=== PATIENT | male | born 2000 | race Caucasian/White ===

== ENCOUNTER 2022-08-22 03:43 | Emergency (ER) | payer BC, SELFPAY ==
[2022-08-22 03:45] VITALS: BP 135/96; PULSE 120; RESP 20; TEMP 36.4; O2SAT 99
--- NOTE | 2022-08-22 03:45 | DI.CT_ITS ---
Exam(s) CT ABDOMEN PELVIS W EXAM: CT ABDOMEN PELVIS W CLINICAL HISTORY: rlq pain, r/o stone vs appe. TECHNIQUE: Imaging Protocol: Axial computed tomography images with coronal and sagittal reformatted images were created and reviewed CONTRAST MATERIAL: Intravenous: Omnipaque-350 100cc Oral: None COMPARISON: No exams were available for comparison FINDINGS: VISUALIZED LUNG BASES: No nodules nor pleural effusions evident. ABDOMEN: There is no ascites. LIVER: There are no focal hepatic lesions evident. Mild steatosis. No dilated intrahepatic ducts. GALLBLADDER/BILIARY: No obvious gallbladder pathology. CBD is not dilated. PANCREAS: No evidence of pancreatic mass nor dilatation of the pancreatic duct. SPLEEN: Spleen is not enlarged. No obvious intrasplenic lesions. Splenic and portal veins are paten t. ADRENALS: There are no significant adrenal masses. KIDNEYS:Left kidney is unremarkable. There is right-sided hydronephrosis and hydroureter which is ca used by a millimeter calculus in the distal right ureter at the right ureterovesical junction. There also a few remaining small calculi in the Right kidney. No renal masses nor cysts evident. ABDOMINAL AORTA: Abdominal aorta is not enlarged. LYMPH NODES:There is no retroperitoneal nor paraaortic adenopathy. ABDOMINAL WALL: No evidence of significant anterior abdominal wall nor inguinal hernia. GI: There is no evidence of bowel obstruction, free air, nor abscess. PELVIS: GI: No evidence of appendicitis.No evidence of sigmoid diverticulitis. LYMPH NODES: There is no intrapelvic nor inguinal adenopathy. REPRODUCTIVE: Prostate not enlarged. Seminal vesicles unremarkable. URINARY BLADDER: Not distended. OSSEOUS: No fractures and no significant osseous lesions. IMPRESSION: 1. The main finding here is an obstructing 3 millimeter calculus in the distal right ureter at the ur eteral vesicle junction. 2. There are multiple small remaining calculi in the right kidney; none in the left kidney. 3. No evidence of appendicitis nor diverticulitis. RADIATION DOSE DELIVERED: 1,059.97mGy.cm Total DLP DATA REPOSITORY: All CT scans at this facility are submitted to the National Radiology Data Registry (NRDR) Dose Index Registry (DIR) with the [employer] (ACR). RADIATION OPTIMIZATION: All CT scans at this facility use at least one of these dose optimization te chniques: automated exposure control; mA and/or kV adjustment per patient size (includes targeted exa ms where dose is matched to clinical indication); or iterative reconstruction.
--- NOTE | 2022-08-22 04:01 | W.ED.GENAD ---
Discharge Plan Disposition Patient Disposition: Home Condition: Good Discharge Details Clinical Impression: Kidney stone on right side Primary Care Provider: Unknown,Unknown ED Provider: Jeovanny Tamayo Home Meds and New Rx's Prescriptions: New tamsulosin 0.4 mg capsule 0.4 mg PO DAILY Qty: 7 0RF docusate sodium [Colace] 100 mg capsule 100 mg PO DAILY Qty: 30 0RF No Action fluoxetine 20 mg capsule 40 mg PO DAILY Discharge Instructions Instructions: Kidney Stones (ED) Additional Instructions: At this time you have evidence of a very small 1 to 2 mm kidney stone. It is almost at the very end, and will likely pass shortly. Please drink plenty of fluids, including fluids with lemon additive to help prevent stones in the future. Take Tylenol and Motrin as needed for pain. Take the Wells pain pills only as needed for breakthrough pain. If you have persistent pain over the next 24 to 48 hours and this may represent the stone being stuck at a stricture. In which case please return for reassessment. Please take the Flomax as directed. It has been sent to your pharmacy on file. Additionally you do have mild constipation. Please take the stool softener as directed. It is also been sent to your pharmacy on file. If you notice any worsening of your symptoms, or any new symptoms such as vomiting, diarrhea, fever, chills, shortness of breath, chest pain, numbness, weakness, or fainting , please return immediately to the emergency department for reevaluation. Please follow up with your primary care provider as soon as possible for reassessment and reevaluation. As always, it was a pleasure participating in your medical care today. Referrals: Delphine Reyes [NURSE PRACTITIONER] - Medical Decision Making This is a pleasant 21-year-old male with past medical history of in the autism spectrum, tic disorder, who presents today with right lower quadrant abdominal pain. Patient states that it started in his right flank at around 6 PM. It is slightly transition more anteriorly. He denies any urinary discomfort but does admit to feeling like there was a grain of sand that might of been traveling down earlier. He denies fever or chills. No vomiting. He does admit to nausea. Bowel movements have been regular. No other complaints at this time. He did take Motrin but this did not improve his symptoms. Physical exam demonstrates nontender abdomen with no reproducible component. Nontender genitals. Differential is highest for kidney stone, but also includes a less likely appendicitis versus constipation. We will treat with Tylenol, fluids, get a CT scan to rule out these pathologies, monitor closely and reassess. At [address] scan shows evidence of a small 1 to 2 mm kidney stone. Patient's pain is improved after morphine. Urinalysis shows no evidence of infection. Patient is afebrile. Symptoms inconsistent at this time with septic stone. Patient does also have some mild constipation noted. Will give Flomax here, and prescription for Flomax at home. Recommend continued NSAIDs and Wells only as needed for breakthrough pain. Recommend Colace for constipation. With the patient's notable improvement of symptoms, the lack of evidence of infection on urinalysis, and with the patient's ability to tolerate p.o., I do feel that he is stable for discharge at this time with close follow-up. I discussed all of this with the patient's mother who is at bedside. I have extensively reviewed the treatment plan and discharge instructions with the patient and their family. I have addressed all patient concerns at this time. The patient and family was made aware of what symptoms to monitor for that would warrant a return to the emergency department. Discussed the plan with the patient and family, they demonstrate verbal understanding and agreement with our assessment and plan at this time. The documentation in this chart was dictated using [employer] dictation software. Please excuse any dictation errors. FINDINGS: Liver: There is diffuse decrease in hepatic parenchymal density, consistent with mild fatty infiltration. No mass. Gallbladder and bile ducts: Normal. No calcified stones. No ductal dilation. Pancreas: Normal. No ductal dilation. Spleen: Normal. No splenomegaly. Adrenal glands: Normal. No mass. Kidneys and ureters: 1-2 mm obstructing calculus in distal right ureter at ureterovesical junction. Mild right hydronephrosis and hydroureter. Several minute right renal calculi. Mild right perinephric fat stranding. Stomach and bowel: Unremarkable. No obstruction. No mucosal thickening. Appendix: Normal appendix. Intraperitoneal space: No free intraperitoneal gas or ascites Vasculature: Unremarkable. No abdominal aortic aneurysm. Lymph nodes: Unremarkable. No enlarged lymph nodes. Urinary bladder: Unremarkable as visualized. Reproductive: Unremarkable as visualized. Bones/joints: Unremarkable. No acute fracture. Soft tissues: Unremarkable. IMPRESSION: 1. Obstructing calculus in distal right ureter. 2. Right renal calculi. 3. Normal appendix. Thank you for allowing us to participate in the care of your patient. Dictated and Authenticated by: Pan Mobley DO 08/22/2022 5:09 AM Eastern Time ([place] & [place]) HPI General Date/Time Provider Initiated Documentation: 08/22/22 03:44. HPI Narrative: 1 this is a pleasant 21-year-old male with past medical history of in the autism spectrum, tic disorder, who presents today with right lower quadrant abdominal pain. Patient states that it started in his right flank at around 6 PM. It is slightly transition more anteriorly. He denies any urinary discomfort but does admit to feeling like there was a grain of sand that might of been traveling down earlier. He denies fever or chills. No vomiting. He does admit to nausea. Bowel movements have been regular. No other complaints at this time. He did take Motrin but this did not improve his symptoms. Related Data Home Medications Medication Instructions Recorded Confirmed docusate sodium 100 mg capsule 100 mg PO DAILY #30 caps 08/22/22 (Colace) fluoxetine 20 mg capsule 40 mg PO DAILY 08/22/22 08/22/22 tamsulosin 0.4 mg capsule 0.4 mg PO DAILY #7 caps 08/22/22 Previous Rx's Medication Instructions Recorded docusate sodium 100 mg capsule 100 mg PO DAILY #30 caps 08/22/22 (Colace) tamsulosin 0.4 mg capsule 0.4 mg PO DAILY #7 caps 08/22/22 Allergies Allergy/AdvReac Type Severity Reaction Status Date / Time No Known Allergies Allergy Unverified 06/04/20 13:34 General Stated Complaint: Abd Prob MARTA: 3 Review of Systems All systems reviewed & are unremarkable except as noted in HPI and below PFSH All Active Problems (Updated 08/22/22 @ 05:19 by Jeovanny Tamayo DO) Kidney stone on right side (Acute) Tic disorder (Acute 04/08/12) Anxiety (Acute 03/03/18) meds7/ Autism spectrum (Acute 02/08/15) has [address] Nausea alone (Acute 04/08/12) CHRONIC Routine child health exam (Acute 04/08/12) Surgical History Circumcision Family History Mother Essential hypertension Personal history of malignant neoplasm breast Mental disorder DEPRESSION/anxiety GERD (gastroesophageal reflux disease) Father Mental disorder DEPRESSION/ANXIETY,bad reaction to Celexa GERD (gastroesophageal reflux disease) Other Personal history of malignant neoplasm Mental disorder anxiety on both sides Social History Smoking/Tobacco Use Status: Never Smoking risk assessment performed?: Yes Alcohol Intake: never Substance use type: does not use Do you feel safe at home: Yes Do you feel safe in your relationship?: Yes Exam Narrative Exam Narrative: 1.Const: Well-nourished, Well-developed, appearing stated age 2.Eyes: PERRL, no conjunctival injection, and symmetrical lids. 3.ENT: Atraumatic external nose and ears. Moist MM. Neck: Symmetric, trachea midline, No thyromegaly. 4.CVS: +S1/S2, No murmurs or gallops. Peripheral pulses 2+ and equal in all extremities. Brisk capillary refill in all extremities. 5.RESP: Unlabored respiratory effort. Clear to auscultation bilaterally. No wheezes rales or rhonchi 6.GI: Soft, Nontender/Nondistended, No hepatosplenomegaly. No guarding or rebound. No genital tenderness. No flank or CVA tenderness. 7.MSK: Normocephalic/Atraumatic, Extremities w/o deformity or ttp No cyanosis or clubbing, Normal movement of all extremities 8.Skin: Warm, Dry. No rashes or lesions. 9.Neuro: track mechanic II-XII grossly intact. Sensation grossly intact, no focal neurologic deficits. 10.Psych: (AAO) x3. Appropriate mood and affect Course Vital Signs Vital signs: Vital Signs Temperature 36.4 C L 08/22/22 03:45 Pulse 120 H 08/22/22 03:45 Respiratory Rate 20 08/22/22 03:45 Blood Pressure 135/96 H 08/22/22 03:45 Pulse Oximetry 99 08/22/22 03:45 Temperature 36.4 C L 08/22/22 03:45 Temperature Source Tympanic 08/22/22 03:45 Pulse 120 H 08/22/22 03:45 Respiratory Rate 20 08/22/22 03:45 Blood Pressure 135/96 H 08/22/22 03:45 Blood Pressure Position Sitting 08/22/22 03:45 Pulse Oximetry 99 08/22/22 03:45 Oxygen Delivery Method Room Air 08/22/22 03:45 Oxygen Flow Rate 0 08/22/22 03:45 Pain Level 4 08/22/22 03:45
[2022-08-22] MEDS: Normal Saline 1,000 ML 1000 ML IV (04:03)
[2022-08-22] MEDS: ACETAMINOPHEN 1,000 MG/100 ML BTL 400 MG IVPB (04:04)
[2022-08-22 04:05] LABS: Abs Immature Grans 0.06 10^3/uL (0.0-0.06); Absolute Basophil Count 0.03 10^3/uL (0.0-0.2); Absolute Eosinophil Count 0.04 10^3/uL (0.0-0.7); Absolute Lymphocyte Count 1.54 10^3/uL (1.2-3.4); Absolute Monocyte Count 1.31 10^3/uL (0.1-0.8); Absolute Neutrophil Count 11.38 10^3/uL (1.2-6.7); Basophils % 0.2; Eosinophils % 0.3; HCT 42.2 % (40.0-50.0); HGB 14.4 g/dL (13.5-17.5); Immature Grans % 0.4; Lymphocytes % 10.7; MCH 29.8 pg (27.0-33.0); MCHC 34.1 % (32.0-36.0); MCV 87 fL (80-95); Monocytes % 9.1; Neutrophils % 79.3; Platelet Count 220 10^3/uL (130-400); RBC 4.83 10^6/uL (4.36-5.78); RDW 11.9 % (11.8-14.1); WBC 14.35 10^3/uL (4.4-10.8)
[2022-08-22 04:19] LABS: ALT 29 U/L (16-63); AST 14 U/L (15-37); Albumin 4.6 g/dL (3.4-5.0); Alkaline Phosphatase 83 U/L (46-116); Anion Gap 11.5 mmol/L (3-11); BUN 15 mg/dL (7-18); Bilirubin, Total 0.8 mg/dL (0.2-1.0); CO2 25.5 mmol/L (21.0-32.0); CREATININE 1.2 mg/dL (0.70-1.30); Calcium 9.8 mg/dL (8.5-10.1); Chloride 105 mmol/L (98-107); Estimated GFR 88.24 (mL/min/1.73m2); Glucose 129 mg/dL (74-106); Lipase 38 U/L (16-77); Potassium 3.9 mmol/L (3.5-5.1); Sodium 142 mmol/L (136-145)
[2022-08-22] MEDS: Omnipaque 350 MG/ML 100 ML BTL IJ (04:21)
[2022-08-22 04:39] LABS: Bilirubin Negative (Negative); Blood Negative (Negative); Clarity Clear (Clear); Glucose Negative (Negative); Ketones 15 mg/dL (Negative); Leukocyte Esterase Negative (Negative); Nitrite Negative (Negative); Specific Gravity >= 1.030 (1.005-1.025)
[2022-08-22] MEDS: Normal Saline - Diluent 50 ML VIAL IV (04:48)
[2022-08-22] MEDS: Normal Saline Flush 10 ML SYR IVP (04:49)
[2022-08-22] MEDS: MORPHine 4 MG/ML SYR IVP (05:10)
--- NOTE | 2022-08-22 05:10 | DI.VRAD_ITS ---
PROCEDURE INFORMATION: Exam: CT Abdomen And Pelvis With Contrast Exam date and time: 08/22/2022 4:36 AM Age: 21 years old Clinical indication: Abdominal pain; Localized; Right lower quadrant (rlq); Patient HX: Rlq pain, R/O stone vs appe TECHNIQUE: Imaging protocol: Computed tomography of the abdomen and pelvis with contrast. Radiation optimization: All CT scans at this facility use at least one of these dose optimization techniques: automated exposure control; mA and/or kV adjustment per patient size (includes targeted exams where dose is matched to clinical indication); or iterative reconstruction. Contrast material: OMNIPAQUE 350; Contrast volume: 100 ml; Contrast route: INTRAVENOUS (IV); COMPARISON: No relevant prior studies available. FINDINGS: Liver: There is diffuse decrease in hepatic parenchymal density, consistent with mild fatty infiltration. No mass. Gallbladder and bile ducts: Normal. No calcified stones. No ductal dilation. Pancreas: Normal. No ductal dilation. Spleen: Normal. No splenomegaly. Adrenal glands: Normal. No mass. Kidneys and ureters: 1-2 mm obstructing calculus in distal right ureter at ureterovesical junction. Mild right hydronephrosis and hydroureter. Several minute right renal calculi. Mild right perinephric fat stranding. Stomach and bowel: Unremarkable. No obstruction. No mucosal thickening. Appendix: Normal appendix. Intraperitoneal space: No free intraperitoneal gas or ascites. Vasculature: Unremarkable. No abdominal aortic aneurysm. Lymph nodes: Unremarkable. No enlarged lymph nodes. Urinary bladder: Unremarkable as visualized. Reproductive: Unremarkable as visualized. Bones/joints: Unremarkable. No acute fracture. Soft tissues: Unremarkable. IMPRESSION: 1. Obstructing calculus in distal right ureter. 2. Right renal calculi. 3. Normal appendix. Dictated and Authenticated by: Pan Mobley MD. Ordering:BRITTANY Up MD
[2022-08-22] MEDS: Tamsulosin 0.4 MG CAPCR PO (05:21)
[2022-08-22] MEDS: Ketorolac 15 MG/ML VIAL IVP (05:21)
[2022-08-22 05:25] VITALS: PULSE 86
[2022-08-22 05:45] VITALS: BP 136/91; PULSE 92; RESP 20; O2SAT 99
== END 2022-08-22 05:44 | disposition home or self-care (01) ==
PROVIDERS: Emergency Provider Student in an Organized Health Care Education/Training Program
DX: N13.2 Hydronephrosis with renal and ureteral calculous obstruction (principal)
CPT/HCPCS: 80053; 83690; 96361; 96374; 96375; 99285; 74177; 81003; 85025; 99284; J0131; J1885; J2270; J3490

== ENCOUNTER 2023-10-19 10:45 | Outpatient (REF) | payer BC, SELFPAY ==
[2023-10-19 15:48] LABS: ALT 44 U/L (16-63); AST 19 U/L (15-37); Albumin 3.9 g/dL (3.4-5.0); Alkaline Phosphatase 73 U/L (46-116); Anion Gap 9.9 mmol/L (3-11); BUN 13 mg/dL (7-18); Bilirubin, Total 0.4 mg/dL (0.2-1.0); CO2 27.1 mmol/L (21.0-32.0); CREATININE 0.6 mg/dL (0.70-1.30); Calcium 8.3 mg/dL (8.5-10.1); Chloride 107 mmol/L (98-107); Cholesterol 259 mg/dL (<200); Estimated GFR 139.97 (mL/min/1.73m2); Glucose 99 mg/dL (74-106); HDL Cholesterol 37 mg/dL (40-60); Sodium 144 mmol/L (136-145); Total Protein 6.9 g/dL (6.4-8.2); Triglyceride 562 mg/dL (<150)
[2023-10-19 16:08] LABS: LDL CHOLESTEROL 113 mg/dL (<100)
== END 2023-10-19 10:46 | disposition home or self-care (01) ==
LOC: NCHCN 10:45
PROVIDERS: Visit Provider Physician Assistant
DX: E66.9 Obesity, unspecified (principal)
CPT/HCPCS: 80053; 80061; 83721

== ENCOUNTER 2024-09-29 15:12 | Outpatient (REF) | payer BC, SELFPAY ==
[2024-09-29 19:39] LABS: ALT 53 U/L (16-63); AST 22 U/L (15-37); Albumin 4.3 g/dL (3.4-5.0); Alkaline Phosphatase 102 U/L (46-116); Anion Gap 11.3 mmol/L (3-11); BUN 7 mg/dL (7-18); Bilirubin, Total 0.6 mg/dL (0.2-1.0); CO2 25.7 mmol/L (21.0-32.0); CREATININE 0.7 mg/dL (0.70-1.30); Calcium 8.9 mg/dL (8.5-10.1); Chloride 105 mmol/L (98-107); Cholesterol 168 mg/dL (<200); Estimated GFR 132.78 (mL/min/1.73m2); Glucose 120 mg/dL (74-106); HDL Cholesterol 38 mg/dL (>or=40); Sodium 142 mmol/L (136-145); Total Protein 7.6 g/dL (6.4-8.2); Triglyceride 688 mg/dL (<150)
[2024-09-29 19:43] LABS: Hemoglobin A1C 5.4 % (<5.7)
[2024-09-29 20:50] LABS: LDL CHOLESTEROL 72 mg/dL (<100)
== END 2024-09-29 15:13 | disposition home or self-care (01) ==
LOC: NCHCN 15:12
PROVIDERS: Visit Provider Physician Assistant
DX: E78.5 Hyperlipidemia, unspecified (principal); Z13.1 Encounter for screening for diabetes mellitus
CPT/HCPCS: 80053; 80061; 83721; 83036

== ENCOUNTER 2024-12-23 15:19 | Outpatient (REF) | payer BC, SELFPAY ==
[2024-12-23 21:12] LABS: Bilirubin Negative (Negative); Blood Moderate (Negative); Clarity Clear (Clear); Glucose Negative (Negative); Ketones Negative (Negative); Leukocyte Esterase Negative (Negative); Nitrite Negative (Negative); Specific Gravity 1.015 (1.005-1.025); Urobilinogen 0.2 mg/dL (Up to 0.2); pH 6.5 (5-8)
[2024-12-23 21:18] LABS: Bacteria Negative HPF (Negative); C & S Indicated? No; Crystals Negative HPF (Negative); Epithelial Cells Rare HPF (Negative); Mucus Moderate (Negative); WBC Negative HPF (0-5)
== END 2024-12-23 15:20 | disposition home or self-care (01) ==
LOC: NCHCN 15:19
PROVIDERS: PCP Family Medicine; Visit Provider Family Medicine
DX: R10.9 Unspecified abdominal pain (principal)
CPT/HCPCS: 81003; 81015

== ENCOUNTER 2025-02-03 01:06 | Outpatient (CLI) | payer BC, SELFPAY ==
[2025-02-03] MEDS: Methacholine 100 MG VIAL IH (15:23)
[2025-02-03] MEDS: Albuterol HFA 18 GM 200 PUFF INH IH (15:24)
[2025-02-03] MEDS: Inhaler, Assist Device 1 EACH MC (15:24)
--- NOTE | 2025-02-06 10:39 | W.PFT ---
Date of service: 02/03/25 Time of Service: 12:58 Pulmonary Function Test Result Indications: Exercise induced asthma Impression Interpretation: 1. Good patient effort was noted 2. Spirometry showed a reduced FEV1:FVC ratio, consistent with mild obstruction or normal variant. There was no significant bronchodilator response. 3. There was a 14% fall in FEV1 at 2 mg/mL methacholine, and only a 4% fall at 16 mg/mL. Negative methacholine challenge test.
== END 2025-02-03 01:07 | disposition home or self-care (01) ==
LOC: RT 01:06
PROVIDERS: PCP Family Medicine; Visit Provider Internal Medicine Pulmonary Disease
DX: J45.990 Exercise induced bronchospasm (principal)
CPT/HCPCS: 94070; 94726; 94729; 95070; J7674

== ENCOUNTER 2025-04-12 18:03 | Outpatient (REF) | payer BC, SELFPAY ==
[2025-04-12 16:55] LABS: ALT 70 U/L (16-63); AST 28 U/L (15-37); Albumin 4.3 g/dL (3.4-5.0); Alkaline Phosphatase 55 U/L (46-116); Anion Gap 11.4 mmol/L (3-11); BUN 10 mg/dL (7-18); Bilirubin, Total 0.6 mg/dL (0.2-1.0); CO2 24.6 mmol/L (21.0-32.0); Calcium 9.5 mg/dL (8.5-10.1); Calculated LDL 129 mg/dL (<100); Chloride 105 mmol/L (98-107); Cholesterol 211 mg/dL (<200); Estimated GFR 122.31 (mL/min/1.73m2); Glucose 89 mg/dL (74-106); HDL Cholesterol 35 mg/dL (>or=40); Potassium 4.1 mmol/L (3.5-5.1); Sodium 141 mmol/L (136-145); Total Protein 7.3 g/dL (6.4-8.2); Triglyceride 236 mg/dL (<150)
== END 2025-04-12 18:04 | disposition home or self-care (01) ==
LOC: NCHCN 18:03
PROVIDERS: PCP Family Medicine; Visit Provider Physician Assistant
DX: E78.5 Hyperlipidemia, unspecified (principal)
CPT/HCPCS: 80053; 80061